=== PATIENT | male | born 2000 | race Caucasian/White ===

== ENCOUNTER → 2024-06-07 | Outpatient (CLI) | payer OTHER ==
--- NOTE | 2024-06-07 22:32 | MR ---
EXAMINATION TYPE: MR knee RT wo con DATE OF EXAM: 06/07/2024 COMPARISON: Outside right knee x-ray May 31, 2024 HISTORY: Right knee pain due to injury. TECHNIQUE: Multiplanar, multisequence images of the knee is performed without IV contrast. FINDINGS: MEDIAL MENISCUS: Anterior and posterior horns are intact without tear. LATERAL MENISCUS: Anterior and posterior horns are intact without tear. CRUCIATE LIGAMENTS: The posterior cruciate ligament is intact and unremarkable. Marked abnormal signa l along the course of the anterior cruciate ligament with fanning the fibers. COLLATERAL LIGAMENTS: The medial collateral ligament and lateral collateral ligament complex are inta ct. True lateral collateral ligament shows some wavy contour but is intact. EXTENSOR MECHANISM: Visualized quadriceps and patellar tendons are intact. EFFUSION: Large size suprapatellar joint effusion. POPLITEAL CYST: No popliteal/hughes cyst. TRICOMPARTMENT SPACES: No significant spurring or joint space loss. CARTILAGE: Tricompartmental articular cartilage is preserved. BONE MARROW SIGNAL: Heterogeneous diminished T1 and increased T2 signal throughout the posterior aspe ct of the tibial plateau greater laterally versus medially. OTHER: No additional significant abnormality is appreciated. IMPRESSION: 1. Significant partial tearing of the anterior cruciate ligament. 2. Abnormal osseous contusion injury involving the posterior aspect of the proximal tibia greatest la terally versus medially. 3. Large sized joint effusion.
== END | disposition home or self-care (01) ==
LOC: RADMRIMAIN 20:15
PROVIDERS: ATTEND Orthopaedic Surgery
DX: S80.01XA Contusion of right knee, initial encounter (principal); S83.511A Sprain of anterior cruciate ligament of right knee, initial encounter; M25.461 Effusion, right knee